=== PATIENT | male | born 1995 ===

== ENCOUNTER 2020-11-04 12:57 | Emergency (ER) | payer SELFPAY ==
[~2020-11-04] VITALS: Ht 172.7 cm; Wt 65.3 kg
[2020-11-04] MEDS ORDERED: Norco 5-325 Ta1 EACH PO (14:27)
== END 2020-11-04 14:51 | disposition home or self-care (01) ==
LOC: ER 12:57
DX: S39.92XA Unspecified injury of lower back, initial encounter (principal); V00.131A Fall from skateboard, initial encounter
CPT/HCPCS: 72100; 96372; 99283-25; J1885